=== PATIENT | female | born 1970 | race Caucasian/White ===

== ENCOUNTER 2018-08-02 07:46 | Day surgery (SDC) | payer OTHER, SELFPAY ==
[2018-08-02 08:02] VITALS: BP 108/71; PULSE 52; RESP 16; TEMP 36.2; O2SAT 97
[2018-08-02] MEDS: Lactated Ringers 1,000 ML 30 ML IV (08:07)
--- NOTE | 2018-08-02 09:47 | COLE_ITS ---
Date of service: 08/02/18 Time of Service: 09:50 Colonoscopy Report Date of procedure: 08/02/18 Pre-op diagnosis general: Family history of colorectal cancer Procedure: Colonoscopy to the cecum Surgeon: Jaden Younger Anesthesia proc note operative: MAC (Mariya Anand, XIOMARA ASA 2 Mallampati II) Estimated blood loss (mL): 0 Pathology: none sent Complications: None Disposition: same day Indications: 47 y/o female referred for colorectal cancer screening by colonoscopy. She has a family history of colorectal cancer. She has been asympotmatic. Recommended colonoscopy. Reviewed the colonoscopy procedure with her, and discussed the risks of the procedure. All her questions were answered to her satisfaction. Consent has been obtained to proceed. Prep: Miralax/Dulcolax (Prep quality excellent) Findings: Normal colon to the cecum. Procedure Description: The patient was seen in the day surgery waiting area. Her identification was confirmed, and procedure check. She was then brought to the procedure room. Monitoring for telemetry, blood pressure, oxygen saturation , and end tidal CO2 monitoring were applied. An appropriate time out was performed to confirm, identification, allergies, medication, procedure, was performed. Sedation was titrated for affect by the RELIGION TEACHER; Once adequate sedation was achieved, I performed a inspection of the external perineum, and a digitial rectal examination. No significant external abnormalities were noted. On digital rectal examination, there was no blood, no masses, good rectal tone. I advanced the colonoscope from the anus to the cecum under direct visualization. The cecum was identified by the ileal-cecal valve, and the appendiceal orifice. The scope was then withdrawn in circumferential manner from the cecum to the rectum. No abnormalites were noted in the colon. The scope was then withdrawn into the rectum, and retroflexed. No abnormalities were noted of the rectum or anorectal junction. The scope was then withdrawn, terminating the procedure. There were no complications during the procedure, and the patient tolerated the procedure well. She was returned to the day surgery recovery area in good condition. Plan: Will continue with routine screening for colorectal cancer according to current consensus guidelines, which is currently 5 years.
--- NOTE | 2018-08-02 09:47 | W.PM.DSUDISC ---
Discharge Plan Disposition Patient Disposition: HOME Condition: Good Discharge Details Reason For Visit: FAM HX OF COLON CA Attending Provider: Jaden Younger Primary Care Provider: Desirae Mckeon Home Meds and New Rx's Prescriptions: Continue triamcinolone acetonide 80 GM ointment 80 gm Topical BID PRNQty: 3 RF: 12 nystatin 60 GM powder Topical BID Qty: 60 RF: 12 Dorian Melts 500 2 tab.chew PO BID RF: 0 Vit B-12 Lozenge 1,000 mcg Sublingual 2x/week RF: 0 trazodone 100 MG tablet 100 mg PO DAILY Qty: 90 RF: 12 cholecalciferol (vitamin D3) 2,000 UNIT tablet 2,000 unit PO DAILY RF: 0 Multivitamin/Iron/Folic Acid [Centrum Adults Tablet] 1 EACH tablet 1 ea PO DAILY RF: 0 duloxetine 60 MG capsule,delayed release(DR/EC) 60 mg PO DAILY Qty: 90 RF: 11 wheat dextrin [Benefiber Clear SF (dextrin)] 1 EACH powder in packet 1 ea PO DAILY RF: 0 sennosides [senna] 8.6 MG tablet 2 tab-cap PO DAILY RF: 0 polyethylene glycol 3350 [Miralax] 17 GM powder in packet 17 g PO DAILY Qty: 255 RF: 0 Discontinued polyethylene glycol 3350 [Miralax] 17 GM powder in packet 17 g PO DAILY Qty: 255 RF: 0 bisacodyl [Dulcolax (bisacodyl)] 5 MG tablet,delayed release (DR/EC) 5 mg PO ONCE Qty: 4 RF: 0 Discharge Instructions Instructions: Colonoscopy (DC) Activity:: Activity as Tolerated Diet:: As Tolerated Discharge Orders Discharge Orders: Discharge Order (Routine); Ordered 08/02/18 Ordered By: Jaden Younger DS: Diagnosis Discharge Diagnosis (1) Family history of colon cancer: Status: Acute
[2018-08-02 11:12] VITALS: BP 93/63; PULSE 50; RESP 16; TEMP 36.5; O2SAT 100
== END 2018-08-02 11:24 | disposition home or self-care (01) ==
PROVIDERS: PCP Family Medicine; Visit Provider Surgery
PROC: 0DJD8ZZ Inspection of Lower Intestinal Tract, Via Natural or Artificial Opening Endoscopic (ICD-10-PCS; CPT 45378; principal; 2018-08-02 08:55)
DX: Z12.11 Encounter for screening for malignant neoplasm of colon (principal); Z80.0 Family history of malignant neoplasm of digestive organs
CPT/HCPCS: 45378

== ENCOUNTER 2019-07-09 06:35 | Outpatient (CLI) | payer OTHER, SELFPAY ==
[2019-07-09 11:23] LABS: HCT 39.4 % (36.0-46.0); HGB 13.2 g/dL (12.0-15.5); Mean Corp. HGB Concentration 33.5 g/dL (32.0-36.0); Mean Corpuscular Hemoglobin 30.1 pg (27.0-33.0); Mean Platelet Volume 10.5 fL (8.0-11.0); Platelet Count 246 x1000/uL (130-400); RBC 4.38 m/cumm (4.00-5.20); White Blood Cell Count 3.51 k/cumm (4.4-10.8)
[2019-07-09 12:15] LABS: Iron 152 ug/dL (50-175)
[2019-07-09 12:40] LABS: Vitamin D 25 Total 44.8 ng/ml (30-100)
[2019-07-09 12:41] LABS: ALT 24 U/L (14-59); AST 15 U/L (15-37); Albumin 3.6 g/dL (3.4-5.0); Alkaline Phosphatase 88 U/L (46-116); Anion Gap 8.6 mmol/L (3-11); BUN 18 mg/dL (7-18); Bilirubin, Total 0.6 mg/dL (0.2-1.0); CO2 29.4 mmol/L (21.0-32.0); CREATININE 0.82 mg/dL (0.55-1.02); Calcium 8.9 mg/dL (8.5-10.1); Calculated LDL 70 mg/dL; Chloride 105 mmol/L (98-107); Cholesterol 152 mg/dL (50-200); Ferritin 32 ng/mL (8-388); Glucose 84 mg/dL (70-100); HDL Cholesterol 75 mg/dL (40-60); Potassium 4.4 mmol/L (3.5-5.1); Sodium 143 mmol/L (136-145); TSH (W/Ref FT4) 1.91 uIU/mL (0.36-3.74); Total Protein 6.3 g/dL (6.4-8.2); Triglyceride 39 mg/dL (30-150); Vitamin B12 1026 pg/mL (193-986)
[2019-07-09 12:44] LABS: Folate > 20.0 ng/mL (8.6-20.0)
== END 2019-07-09 06:55 ==
PROVIDERS: PCP Family Medicine; Visit Provider Family Medicine
DX: Z00.00 Encounter for general adult medical examination without abnormal findings (principal); Z98.84 Bariatric surgery status
CPT/HCPCS: 36415; 80053; 80061; 82306; 83721; 85027; 82607; 82728; 82746; 83540; 84443

== ENCOUNTER 2019-07-30 00:56 | Outpatient (CLI) | payer OTHER, SELFPAY ==
--- NOTE | 2019-07-30 12:30 | DI.MAMMO_ITS ---
EXAM: MG MAMMO SCREENING CLINICAL HISTORY: screening Z12.39. TECHNIQUE: Bilateral full field digital CC and MLO mammographic images were obtained with 3D tomosyn thesis and utilizing computer aided detection (CAD). COMPARISON: With previous examinations including May,. FINDINGS: The breasts are of moderate density with fairly symmetrical distribution of fibroglandular tissue. N o dominant mass or clumped microcalcification is identified in either breast. Current examination is compared with the previous examinations including May 2018 and there is increased prominence of foc al asymmetric density of the retroareolar/supra-areolar portion of the right breast in comparison wit h the previous examination. Additional mammographic views of this area are requested to include MLO spot compression view of the right breast. IMPRESSION: Additional mammographic views of the right breast requested as described above. Breast ultrasound may be indicated as well depending on the results of the additional mammographic views. Category [address]. [place] [address] density, category B. BI-RADS Cat 0 - Assessment Incomplete: Need additional imaging evaluation. Breast Density - Category B - Scattered areas of fibroglandular density.
== END 2019-07-30 01:16 ==
PROVIDERS: PCP Family Medicine; Visit Provider Family Medicine
DX: Z12.31 Encounter for screening mammogram for malignant neoplasm of breast (principal); R92.8 Other abnormal and inconclusive findings on diagnostic imaging of breast
CPT/HCPCS: 77063; 77067

== ENCOUNTER 2019-08-06 01:04 | Outpatient (CLI) | payer OTHER, SELFPAY ==
--- NOTE | 2019-08-06 15:02 | DI.MAMMO_ITS ---
EXAM: MAMMO SCREEN CALL BACK UNI CLINICAL HISTORY: F/U MAMMO, INCREASED PROMINENCE FOCAL ASYMMETRIC DENSITY. TECHNIQUE: Additional images are interpreted according to the usual protocol including tomosynthesis and 2D imaging. FINDINGS: Mediolateral compression spot films of the right breast were obtained today. Non-specific densities a re demonstrated. No definite mass is seen. And ultrasound examination was carried out. Please see t he separate report. IMPRESSION: BI-RADS Cat 1 - Negative. Breast Density - Category B - Scattered areas of fibroglandular density.
--- NOTE | 2019-08-06 15:30 | DI.US_ITS ---
EXAM: US BREAST RT LIMITED CLINICAL HISTORY: F/U MAMMO, INCREASED PROMINENCE FOCAL ASYMMETRIC DENSITY. TECHNIQUE: Ultrasound performed using standard protocol. COMPARISON: PELVIS TRANSVAG from 06/09/2011 FINDINGS: A right breast ultrasound reveals no evidence of a cyst or mass.
== END 2019-08-06 01:24 ==
PROVIDERS: PCP Family Medicine; Visit Provider Family Medicine
DX: Z12.31 Encounter for screening mammogram for malignant neoplasm of breast (principal); R92.8 Other abnormal and inconclusive findings on diagnostic imaging of breast; N64.59 Other signs and symptoms in breast
CPT/HCPCS: 76642; 77063; 77067

== ENCOUNTER 2020-07-15 12:26 | Outpatient (REF) | payer OTHER, SELFPAY ==
--- NOTE | 2020-07-15 11:15 | PAPFT_PTH ---
PATIENT: Ale Velarde LOC: [facility] U#:[id number] AGE/SX: 49/F ROOM: RE07/15/[address]: Desirae Mckeon MD, DC : 1970 BED: DIS: 07/15/2020 SPEC #: [id number] RECD: 07/16/20 10:10 STATUS: ELIUD REQ #: [id number] ELIN: 07/15/20 11:[address]: Desirae Mckeon DEPT: [facility] Cytology RECD BY: Orly Lane Tissues: 1 - CX/ENDOCX FOR PAP SMEARS Procedures: PAP THIN PREP/UVM Screening HPV DNA PROBE Comments: [id number]
== END 2020-07-15 12:46 ==
LOC: LBN 12:26
PROVIDERS: PCP Family Medicine; Visit Provider Family Medicine
DX: Z12.4 Encounter for screening for malignant neoplasm of cervix (principal); Z11.51 Encounter for screening for human papillomavirus (HPV)
CPT/HCPCS: 88142; 87624

== ENCOUNTER 2020-07-28 01:56 | Outpatient (CLI) | payer OTHER, SELFPAY ==
--- NOTE | 2020-07-28 07:42 | DI.MAMMO_ITS ---
EXAM: MAMMO SCREENING CLINICAL HISTORY: screening,Z12.39 TECHNIQUE: Mammograms were interpreted according to the usual protocol including computer analysis w [employer] CAD system, tomosynthesis and C-view imaging. COMPARISON: FINDINGS: The breasts are of moderate density with fairly symmetrical distribution of fibroglandular tissue. N o dominant mass or clumped microcalcification is identified in either breast. There is an irregular focal radiodensity projected posteriorly in the right breast on MLO view in the central portion of th e breast. This was not present on prior studies including July 2019. No other significant change seen. Additional mammographic views of the right breast are requested to include an MLO spot compression vi ew of the right breast to evaluate the irregular focal radiodensity. Breast ultrasound may be indica cecil as well depending on the results of the additional mammographic views. IMPRESSION: Additional mammographic views of the right breast and possible right breast ultrasound recommended as described above. BI-RADS Category 0 - Assessment Incomplete: Need additional imaging evaluation Breast Density - Category B - Scattered areas of fibroglandular density
== END 2020-07-28 02:16 ==
PROVIDERS: PCP Family Medicine; Visit Provider Family Medicine
DX: Z12.31 Encounter for screening mammogram for malignant neoplasm of breast (principal); R92.8 Other abnormal and inconclusive findings on diagnostic imaging of breast
CPT/HCPCS: 77063; 77067

== ENCOUNTER 2020-08-03 00:34 | Outpatient (CLI) | payer OTHER, SELFPAY ==
--- NOTE | 2020-08-03 | DI.US_ITS ---
EXAM: MG MAMMO SCREEN CALL BACK UNI and U/S breast RT limited CLINICAL HISTORY: F/U MAMMO,IRREGULAR FOCAL DENSITY,MLO VIEW RT BREAST. TECHNIQUE: Craniocaudal and mediolateral oblique Full Field Digital Mammography views of the right b reast with Computer Aided Diagnosis followed by Tomosynthesis and right breast ultrasound. COMPARISON: Priors available for comparison. FINDINGS: Mammography/Tomosynthesis: Masses/Architectural Distortion: The area of concern does not persist on the additional views. Microcalcifictions: No suspicious pleomorphic-type are seen. Skin Thickening/Nipple Retraction: None. Right breast US: Echotexture: Normal appearance of the glandular tissue. Shadowing: No suspicious foci. Cyst: None. Solid lesions: None seen. Ductal dilation: None. IMPRESSION: 1. No evidence of malignancy is noted. 2. Six-month follow-up right mammogram is requested for re-evaluation. 3. The findings were discussed with the patient on the date of the examination. BI-RADS Category 3 - 6 month - Probably Benign Finding: Recommend follow-up mammography in 6 months Breast Density - Category B - Scattered areas of fibroglandular density A negative radiographic report should not delay biopsy if a dominant or clinically suspicious mass is present. Up to ten percent of cancers are not identified on mammography. A negative report may reinforce clinical impression. Adenosis and dense breasts may obscure an underlying neoplasm. False positive reports average 6 to 10%. Patient will receive a letter notifying them of these results.
== END 2020-08-03 00:54 ==
PROVIDERS: PCP Family Medicine; Visit Provider Family Medicine
DX: R92.8 Other abnormal and inconclusive findings on diagnostic imaging of breast (principal)
CPT/HCPCS: 76642; 77063; 77067

== ENCOUNTER 2021-02-08 01:54 | Outpatient (CLI) | payer OTHER, SELFPAY ==
--- NOTE | 2021-02-08 06:30 | DI.MAMMO_ITS ---
EXAM: MG MAMMO DIAGNOSTIC UNI CLINICAL HISTORY: 3-6 MO F/U,R92.8,Z09,F/U ABNL RT MAMMO. COMPARISON: MG Screening Bilat Mammo from 02/15/2017 MG MG MAMMO SCREENING from 07/30/2019 MG MG MAMMO SCREEN CALL BACK UNI from 08/06/2019 US BREAST RT LIMITED from 08/03/2020 MG MG MAMMO SCREEN CALL BACK UNI from 08/03/2020 US US BREAST RT LIMITED from 08/03/2020 MG MG MAMMO SCREEN CALL BACK UNI from 08/03/2020 [id number] TECHNIQUE: Craniocaudal and mediolateral oblique Full Field Digital Mammography views of the right breast with Computer Aided Diagnosis FINDINGS: Mammography/Tomosynthesis: Masses/Architectural Distortion: None seen. Microcalcifications: No suspicious pleomorphic-type are seen. Skin Thickening/Nipple Retraction: None. IMPRESSION: 1. No evidence of malignancy is noted. 2. Recommend resume bilateral screening in 6 months.. BI-RADS Category 1 - Negative Breast Density - Category B - Scattered areas of fibroglandular density Breast density category C or D implies that the patient has dense breast tissue. Dense breast tissue is very common and is not abnormal but dense breast tissue can make it harder to find cancer on a ma mmogram. Also, dense breast tissue may increase their breast cancer risk. This information about the result of the mammogram report was provided to the patient to raise their awareness. Use this report when you speak with the patient about their risks for breast cancer, which includes their family hist ory. At that time, you may recommend for more screening tests (Ultrasound or MRI) as they might be us eful based on their risk. A negative radiographic report should not delay biopsy if a dominant or clinically suspicious mass is present. Up to ten percent of cancers are not identified on mammography. A negative report may reinforce clinical impression. Adenosis and dense breasts may obscure an underlying neoplasm. False positive reports average 6 to 10%. Patient will receive a letter notifying them of these results.
== END 2021-02-08 02:14 ==
PROVIDERS: PCP Family Medicine; Visit Provider Family Medicine
DX: Z12.31 Encounter for screening mammogram for malignant neoplasm of breast (principal); R92.8 Other abnormal and inconclusive findings on diagnostic imaging of breast; N64.89 Other specified disorders of breast
CPT/HCPCS: 77061; 77065; G0279

== ENCOUNTER 2021-05-05 12:15 | Emergency (ER) | payer OTHER, SELFPAY ==
[2021-05-05 12:20] VITALS: BP 132/78; PULSE 83; RESP 22; TEMP 36.5; O2SAT 99
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
[2021-05-05] MEDS: ACETAMINOPHEN 1,000 MG/100 ML BTL 400 MG IVPB (12:58)
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
[2021-05-05] MEDS: Ketorolac 30 MG/ML VIAL IVP (14:11)
[2021-05-05 15:13] VITALS: BP 132/78; PULSE 83; RESP 22; TEMP 36.5; O2SAT 99
== END 2021-05-05 15:20 | disposition home or self-care (01) ==
PROVIDERS: Emergency Provider Physician Assistant; PCP Family Medicine
DX: S00.03XA Contusion of scalp, initial encounter (principal); S50.311A Abrasion of right elbow, initial encounter; S40.011A Contusion of right shoulder, initial encounter; S30.0XXA Contusion of lower back and pelvis, initial encounter; V03.90XA Pedestrian on foot injured in collision with car, pick-up truck or van, unspecified whether traffic or nontraffic accident, initial encounter
CPT/HCPCS: 90471; 96365; 96375; 99285; 70450; 71046; 72125; 72131; 73030; 99284; J0131; J1885

== ENCOUNTER 2021-05-09 03:18 | Outpatient (CLI) | payer OTHER, SELFPAY ==
[2021-05-09 12:50] LABS: Hemoglobin A1C 5.3 % (<5.7)
[2021-05-09 12:52] LABS: ALT 25 U/L (14-59); AST 18 U/L (15-37); Alkaline Phosphatase 82 U/L (46-116); Anion Gap 9.5 mmol/L (3-11); BUN 17 mg/dL (7-18); Bilirubin, Total 0.6 mg/dL (0.2-1.0); CO2 29.5 mmol/L (21.0-32.0); CREATININE 0.8 mg/dL (0.55-1.02); Calculated LDL 90 mg/dL (<100); Chloride 105 mmol/L (98-107); Cholesterol 179 mg/dL (<200); Glucose 91 mg/dL (74-106); HDL Cholesterol 77 mg/dL (40-60); Potassium 3.7 mmol/L (3.5-5.1); Sodium 144 mmol/L (136-145); TSH (W/Ref FT4) 1.33 uIU/mL (0.36-3.74); Total Protein 6.8 g/dL (6.4-8.2); Triglyceride 64 mg/dL (<150)
[2021-05-10 10:14] LABS: Hepatitis C Ab w Rflx HCV PCR Negative (Negative)
== END 2021-05-09 03:19 | disposition home or self-care (01) ==
LOC: LOS 03:19
PROVIDERS: PCP Family Medicine; Visit Provider Family Medicine
DX: Z00.00 Encounter for general adult medical examination without abnormal findings (principal); F43.21 Adjustment disorder with depressed mood; E11.9 Type 2 diabetes mellitus without complications; Z13.220 Encounter for screening for lipoid disorders; Z98.84 Bariatric surgery status; Z11.59 Encounter for screening for other viral diseases
CPT/HCPCS: 36415; 80053; 80061; 82306; 86803; 83036; 84443

== ENCOUNTER 2021-07-07 10:14 | Outpatient (CLI) | payer OTHER, SELFPAY ==
--- NOTE | 2021-07-07 10:00 | RT.EKG_ITS ---
APPROVED REPORT Exam: Resting ECG Reason for Exam: dizziness. chest pain. Patient Location: O HR:59 bpm ECG Measurements Heart Rate 59 AXIS MA 171 P 72 QRSd 86 QRS 45 QT 418 T 52 QTc 416 Conclusion Sinus bradycardia...rate< 60 Low voltage, extremity leads...all extremity leads <0.5mV
== END 2021-07-07 10:15 | disposition home or self-care (01) ==
LOC: DI.CM 10:15
PROVIDERS: PCP Family Medicine; Visit Provider Nurse Practitioner Family
DX: R42 Dizziness and giddiness (principal); R07.9 Chest pain, unspecified
CPT/HCPCS: 93010

== ENCOUNTER 2021-07-07 17:31 | Outpatient (REF) | payer OTHER, SELFPAY ==
[2021-07-07 13:30] LABS: Abs Immature Grans 0.02 10^3/uL (0.0-0.06); Absolute Basophil Count 0.02 10^3/uL (0.0-0.2); Absolute Eosinophil Count 0.08 10^3/uL (0.0-0.7); Absolute Lymphocyte Count 1.35 10^3/uL (1.2-3.4); Absolute Monocyte Count 0.32 10^3/uL (0.1-0.8); Absolute Neutrophil Count 3.57 10^3/uL (1.2-6.7); Basophils % 0.4; Eosinophils % 1.5; HCT 35.7 % (36.0-46.0); HGB 11.8 g/dL (11.2-15.7); Immature Grans % 0.4; Lymphocytes % 25.2; MCH 29.6 pg (27.0-33.0); MCHC 33.1 % (32.0-36.0); MCV 89.7 fL (80-95); MPV 9.7 fL (8.0-11.0); Neutrophils % 66.5; Nucleated RBC 0 %; Platelet Count 243 10^3/uL (130-400); RBC 3.98 10^6/uL (3.93-5.22); RDW 12.1 % (11.7-14.6); RDW-SD 40.5 fL; WBC 5.36 10^3/uL (4.4-10.8)
[2021-07-07 13:34] LABS: Anion Gap 6.7 mmol/L (3-11); BUN 16 mg/dL (7-18); CO2 27.3 mmol/L (21.0-32.0); CREATININE 0.8 mg/dL (0.55-1.02); Calcium 7.8 mg/dL (8.5-10.1); Chloride 109 mmol/L (98-107); Glucose 83 mg/dL (74-106); Potassium 3.8 mmol/L (3.5-5.1); Sodium 143 mmol/L (136-145)
== END 2021-07-07 17:32 | disposition home or self-care (01) ==
LOC: LBN 17:31
PROVIDERS: PCP Family Medicine; Visit Provider Nurse Practitioner Family
DX: R42 Dizziness and giddiness (principal)
CPT/HCPCS: 80048; 85025

== ENCOUNTER 2021-10-24 13:23 | Outpatient (REF) | payer OTHER, SELFPAY ==
[2021-10-25 02:23] LABS: COVID-19 RT-PCR UVMMC Result Negative (Negative)
== END 2021-10-24 13:24 | disposition home or self-care (01) ==
LOC: LBN 13:23
PROVIDERS: PCP Family Medicine; Visit Provider Family Medicine
DX: Z20.822 Contact with and (suspected) exposure to COVID-19 (principal)
CPT/HCPCS: U0003

== ENCOUNTER 2022-02-14 01:36 | Outpatient (CLI) | payer OTHER, SELFPAY ==
--- NOTE | 2022-02-14 07:30 | DI.MAMMO_ITS ---
Exam(s) MAMMO SCREENING EXAM: MAMMO SCREENING CLINICAL HISTORY: screening,z12.39 TECHNIQUE: Bilateral full field digital CC and MLO mammographic images were obtained with 3D tomosyn thesis and utilizing computer aided detection (CAD). COMPARISON: Available for comparison. FINDINGS: Masses/Architectural Distortion: None seen. Microcalcifications: No suspicious pleomorphic-type are seen. Skin Thickening/Nipple Retraction: None. IMPRESSION: 1. No significant interval change with no specific features of malignancy noted. 2. Unless there is more urgent need, screening mammography is recommended, as per [employer] guidelines. BI-RADS Category 1 - Negative Breast Density - Category B - Scattered areas of fibroglandular density Breast density category C or D implies that the patient has dense breast tissue. Dense breast tissue is very common and is not abnormal but dense breast tissue can make it harder to find cancer on a ma mmogram. Also, dense breast tissue may increase their breast cancer risk. This information about the result of the mammogram report was provided to the patient to raise their awareness. Use this report when you speak with the patient about their risks for breast cancer, which includes their family hist ory. At that time, you may recommend for more screening tests (Ultrasound or MRI) as they might be us eful based on their risk. A negative radiographic report should not delay biopsy if a dominant or clinically suspicious mass is present. Up to ten percent of cancers are not identified on mammography. A negative report may reinforce clinical impression. Adenosis and dense breasts may obscure an underlying neoplasm. False positive reports average 6 to 10%. Patient will receive a letter notifying them of these results.
== END 2022-02-14 01:56 ==
PROVIDERS: PCP Family Medicine; Visit Provider Family Medicine
DX: Z12.31 Encounter for screening mammogram for malignant neoplasm of breast (principal)
CPT/HCPCS: 77063; 77067

== ENCOUNTER → 2022-05-17 01:21 | Outpatient (CLI) | payer OTHER, SELFPAY ==
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
== END ==
PROVIDERS: PCP Family Medicine; Visit Provider Family Medicine
DX: M18.0 Bilateral primary osteoarthritis of first carpometacarpal joints (principal)
CPT/HCPCS: 73120

== ENCOUNTER 2022-05-17 02:55 | Outpatient (CLI) | payer OTHER, SELFPAY ==
[2022-05-17 13:03] LABS: ESR < 1 mm/hr (0-30)
[2022-05-17 13:20] LABS: Uric Acid 3.4 mg/dL (2.6-6.0)
[2022-05-17 21:54] LABS: Rheumatoid Factor <8.6 IU/mL (<12.0)
[2022-05-18 15:17] LABS: ANA Interpretation Negative (Negative)
== END 2022-05-17 02:56 | disposition home or self-care (01) ==
PROVIDERS: PCP Family Medicine; Visit Provider Family Medicine
DX: M79.641 Pain in right hand (principal); M79.642 Pain in left hand; M25.59 Pain in other specified joint
CPT/HCPCS: 36415; 85652; 84550; 86038; 86431

== ENCOUNTER 2022-07-25 04:00 | Outpatient (CLI) | payer OTHER, SELFPAY ==
[2022-07-25 12:41] LABS: ESR < 1 mm/hr (0-30)
== END 2022-07-25 04:01 | disposition home or self-care (01) ==
LOC: LOS 04:00
PROVIDERS: PCP Family Medicine; Visit Provider Family Medicine
DX: M25.59 Pain in other specified joint (principal)
CPT/HCPCS: 36415; 85652

== ENCOUNTER 2022-11-22 03:13 | Outpatient (CLI) | payer OTHER, SELFPAY ==
[2022-11-22 12:29] LABS: HCT 40.3 % (36.0-46.0); HGB 13.2 g/dL (11.2-15.7); MCH 28.8 pg (27.0-33.0); MCHC 32.8 % (32.0-36.0); MCV 88 fL (80-95); MPV 9.6 fL (8.0-11.0); Platelet Count 281 10^3/uL (130-400); RBC 4.58 10^6/uL (3.93-5.22); RDW 12.7 % (11.7-14.6); RDW-SD 41.1 fL; WBC 4.98 10^3/uL (4.4-10.8)
[2022-11-22 13:30] LABS: ALT 23 U/L (14-59); AST 23 U/L (15-37); Albumin 4.1 g/dL (3.4-5.0); Alkaline Phosphatase 99 U/L (46-116); Anion Gap 10.2 mmol/L (3-11); BUN 20 mg/dL (7-18); Bilirubin, Total 0.3 mg/dL (0.2-1.0); CO2 26.8 mmol/L (21.0-32.0); CREATININE 0.8 mg/dL (0.55-1.02); Chloride 104 mmol/L (98-107); Glucose 90 mg/dL (74-106); Potassium 3.7 mmol/L (3.5-5.1); Sodium 141 mmol/L (136-145); TSH (W/Ref FT4) 1.07 uIU/mL (0.36-3.74); Total Protein 7.3 g/dL (6.4-8.2)
[2022-11-22 13:39] LABS: Vitamin D 25 Total 51.3 ng/mL (30-100)
== END 2022-11-22 03:14 | disposition home or self-care (01) ==
LOC: LOS 03:15
PROVIDERS: PCP Family Medicine; Visit Provider Family Medicine
DX: Z00.00 Encounter for general adult medical examination without abnormal findings (principal)
CPT/HCPCS: 36415; 80053; 82306; 85027; 84443

== ENCOUNTER 2023-02-12 10:57 | Outpatient (CLI) | payer OTHER, SELFPAY ==
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
--- NOTE | 2023-02-12 10:45 | DI.RAD_ITS ---
Exam(s) XR WRIST RT COMPLETE EXAM: XR WRIST RT COMPLETE CLINICAL HISTORY: B/L thumb/wrist pain. TECHNIQUE: 2D digital imaging was performed. COMPARISON: No exams were available for comparison FINDINGS: 3 views No evidence of acute fracture. There are 2 osteophytic densities noted in the medial aspect of the w rist distal to the ulnar styloid which appear corticated and not having the appearance of acute fract ure fragments. There is no significant ulnar variance. Distal radius appears unremarkable. Scaphoi d and scapholunate distance normal. There is significant degenerative narrowing of the 1st carpometacarpal joint. This is similar to the opposite side. IMPRESSION: Moderate-advanced degenerative changes in the 1st carpometacarpal joint. Other findings as above. No fractures. DATA REPOSITORY: RADIATION DOSE DELIVERED:
== END 2023-02-12 10:58 | disposition home or self-care (01) ==
LOC: DIORS 10:58
PROVIDERS: PCP Family Medicine; Referring Provider Family Medicine; Visit Provider Physician Assistant
DX: M79.644 Pain in right finger(s) (principal); M79.645 Pain in left finger(s); M18.11 Unilateral primary osteoarthritis of first carpometacarpal joint, right hand; M18.12 Unilateral primary osteoarthritis of first carpometacarpal joint, left hand; M25.531 Pain in right wrist; M25.532 Pain in left wrist
CPT/HCPCS: 73110

== ENCOUNTER 2023-02-16 00:34 | Outpatient (CLI) | payer OTHER, SELFPAY ==
--- NOTE | 2023-02-16 07:45 | DI.MAMMO_ITS ---
Exam(s) MAMMO SCREENING EXAM: MAMMO SCREENING CLINICAL HISTORY: screening,Z12.39 TECHNIQUE: Bilateral full field digital CC and MLO mammographic images were obtained with 3D tomosyn thesis and utilizing computer aided detection (CAD). COMPARISON: Available for comparison. FINDINGS: Masses/Architectural Distortion: None seen. Microcalcifications: No suspicious pleomorphic-type are seen. Skin Thickening/Nipple Retraction: None. IMPRESSION: 1. No significant interval change with no specific features of malignancy noted. 2. Unless there is more urgent need, screening mammography is recommended, as per [place] [employer] guidelines. BI-RADS Category 1 - Negative Breast Density - Category B - Scattered areas of fibroglandular density Breast density category C or D implies that the patient has dense breast tissue. Dense breast tissue is very common and is not abnormal but dense breast tissue can make it harder to find cancer on a ma mmogram. Also, dense breast tissue may increase their breast cancer risk. This information about the result of the mammogram report was provided to the patient to raise their awareness. Use this report when you speak with the patient about their risks for breast cancer, which includes their family hist ory. At that time, you may recommend for more screening tests (Ultrasound or MRI) as they might be us eful based on their risk. A negative radiographic report should not delay biopsy if a dominant or clinically suspicious mass is present. Up to ten percent of cancers are not identified on mammography. A negative report may reinforce clinical impression. Adenosis and dense breasts may obscure an underlying neoplasm. False positive reports average 6 to 10%. Patient will receive a letter notifying them of these results.
== END 2023-02-16 00:54 ==
LOC: DI 00:35
PROVIDERS: PCP Family Medicine; Visit Provider Family Medicine
DX: Z12.31 Encounter for screening mammogram for malignant neoplasm of breast (principal)
CPT/HCPCS: 77063; 77067

== ENCOUNTER 2023-05-10 13:09 | Observation (INO) | payer OTHER, SELFPAY ==
[2023-05-10] VITALS (8 sets, daily range): BP systolic 93–110; BP diastolic 46–72; PULSE 56–82; RESP 18–24; TEMP 36.6–36.9; O2SAT 93–99; BMI 25.4
--- NOTE | 2023-05-10 13:15 | DI.CT_ITS ---
Exam(s) CT ABDOMEN PELVIS W EXAM: CT ABDOMEN PELVIS W CLINICAL HISTORY: RLQ pain, nausea vomiting. TECHNIQUE: Imaging Protocol: Axial computed tomography images with coronal and sagittal reformatted images were created and reviewed CONTRAST MATERIAL: Intravenous: Omnipaque 350 Contrast volume:100 ml Oral: / no COMPARISON: No exams were available for comparison FINDINGS: ABDOMEN: Lung Bases: Normal where visualized. Liver: Normal density. No measurable mass. Gallbladder and biliary tract: No radiodense calculus or dilation. Pancreas: Normal density, no abnormal calcifications or inflammatory process. Spleen: Normal. Kidneys: Normal size, contour and axis. No radiodense stones or obstructive uropathy. No suspicious m asses seen. Adrenal glands: No masses seen. Abdominal Aorta: Abdominal portion non-dilated. Soft tissues: Unremarkable. PELVIS: Bladder: Nearly empty. Not well evaluated. Bowel: Suture material at stomach and left upper quadrant jejunum.. No obstruction. No bowel wall thickening. Appendix shows marked dilatation. Arm or also a appendicoliths. There is surrounding in flammation, consistent with appendicitis. No abscess or perforation. Peritoneal cavity: No ascites, collection or mesenteric inflammatory response. Bones: Unremarkable for age. Reproductive organs: Within normal limits. Lymph nodes: Unremarkable. Impression: Findings consistent with acute appendicitis. No abscess or perforation. RADIATION DOSE DELIVERED: 771.08mGy.cm Total DLP DATA REPOSITORY: All CT scans at this facility are submitted to the National Radiology Data Registry (NRDR) Dose Index Registry (DIR) with the [place] [employer] (ACR). RADIATION OPTIMIZATION: All CT scans at this facility use at least one of these dose optimization te chniques: automated exposure control; mA and/or kV adjustment per patient size (includes targeted exa ms where dose is matched to clinical indication); or iterative reconstruction.
[2023-05-10 13:38] LABS: Abs Immature Grans 0.04 10^3/uL (0.0-0.06); Absolute Basophil Count 0.03 10^3/uL (0.0-0.2); Absolute Eosinophil Count 0.01 10^3/uL (0.0-0.7); Absolute Lymphocyte Count 0.85 10^3/uL (1.2-3.4); Absolute Monocyte Count 0.71 10^3/uL (0.1-0.8); Absolute Neutrophil Count 11.83 10^3/uL (1.2-6.7); Basophils % 0.2; Eosinophils % 0.1; HCT 37.7 % (36.0-46.0); HGB 12.7 g/dL (11.2-15.7); Immature Grans % 0.3; Lymphocytes % 6.3; MCH 29.2 pg (27.0-33.0); MCHC 33.7 % (32.0-36.0); MCV 87 fL (80-95); MPV 8.7 fL (8.0-11.0); Monocytes % 5.3; Neutrophils % 87.8; Platelet Count 248 10^3/uL (130-400); RBC 4.35 10^6/uL (3.93-5.22); RDW-SD 41.5 fL; WBC 13.47 10^3/uL (4.4-10.8)
[2023-05-10] MEDS: MORPHine 4 MG/ML SYR 2 MG IVP ×2 (13:43→18:04)
[2023-05-10] MEDS: Normal Saline 1,000 ML 1000 ML IV ×2 (13:44→18:05)
[2023-05-10] MEDS: Ondansetron 4 MG/2 ML VIAL IVP ×2 (13:44→17:18)
[2023-05-10 13:52] LABS: Bilirubin Small (Negative); Blood Negative (Negative); Clarity Clear (Clear); Glucose Negative (Negative); Ketones 80 mg/dL (Negative); Leukocyte Esterase Negative (Negative); Nitrite Negative (Negative); Urobilinogen 0.2 mg/dL (Up to 0.2); pH 8.5 (5-8)
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
[2023-05-10 13:58] LABS: ALT 22 U/L (14-59); AST 16 U/L (15-37); Alkaline Phosphatase 107 U/L (46-116); Anion Gap 9.1 mmol/L (3-11); BUN 17 mg/dL (7-18); Bilirubin, Total 0.6 mg/dL (0.2-1.0); CO2 27.9 mmol/L (21.0-32.0); CREATININE 0.8 mg/dL (0.55-1.02); Calcium 8.9 mg/dL (8.5-10.1); Chloride 101 mmol/L (98-107); Glucose 105 mg/dL (74-106); Lipase 23 U/L (16-77); Potassium 3.6 mmol/L (3.5-5.1); Sodium 138 mmol/L (136-145); Total Protein 7.3 g/dL (6.4-8.2)
[2023-05-10] MEDS: Omnipaque 350 MG/ML 100 ML BTL IJ (14:25)
[2023-05-10] MEDS: Normal Saline - Diluent 50 ML VIAL IJ (14:26)
[2023-05-10] MEDS: Normal Saline Flush 10 ML SYR IVP (14:27)
--- NOTE | 2023-05-10 18:50 | DI.VRAD_ITS ---
Addendum created by Arielle Alcala MD on 05/10/2023 7:25:17 PM EDT: THIS REPORT CONTAINS FINDINGS THAT MAY BE CRITICAL TO PATIENT CARE. Reji Pascual confirmed via telephone conference at 05/10/2023 7:21 PM EDT that the findings of this report are acknowledged and understood. Initial report created on 05/10/2023 6:49:44 PM EDT: PROCEDURE INFORMATION: Exam: CT Abdomen And Pelvis With Contrast Exam date and time: 05/10/2023 2:22 PM Age: 52 years old Clinical indication: Abdominal pain; Rlq TECHNIQUE: Imaging protocol: Computed tomography of the abdomen and pelvis with contrast. Contrast material: OMNIPAQUE 350; Contrast volume: 100 ml; Contrast route: IV; COMPARISON: CT LUMBAR SPINE WO 05/05/2021 1:42 PM FINDINGS: Lungs: Dependent atelectasis is seen at the lung bases. Liver: Unremarkable liver. No mass identified. Gallbladder and bile ducts: The gallbladder is unremarkable. No calcified stones. No ductal dilation. Pancreas: Normal. No ductal dilation. Spleen: The spleen is unremarkable. No splenomegaly. Adrenal glands: The adrenal glands are unremarkable. No defined mass. Kidneys and ureters: There are small bilateral renal hypodensities, which are too small to characterize but may represent cysts. No hydronephrosis. Stomach and bowel: No bowel obstruction. There is evidence of prior gastric bypass procedure. Appendix: The appendix is dilated measuring up to 1.3 cm in diameter. Small appendicoliths are noted within the appendix. Periappendiceal fat stranding is noted, consistent with inflammation. Intraperitoneal space: No free air. No significant fluid collection. Vasculature: No abdominal aortic aneurysm. Lymph nodes: No enlarged lymph nodes. Urinary bladder: Unremarkable urinary bladder. Reproductive: Unremarkable as visualized. Bones/joints: No acute fracture. Soft tissues: Unremarkable. IMPRESSION: Findings suggestive of acute appendicitis as described. No evidence of perforation or abscess formation. Dictated and Authenticated by: Arielle Alcala MD. Ordering:GABRIEL Mendoza MD
[2023-05-10] MEDS: PIPERACILLIN/TAZO 4.5 GM in Normal Saline 100 ML IVPB (19:05)
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
[2023-05-10] MEDS: Lactated Ringers 1,000 ML 100 ML IV (20:21)
[2023-05-10] MEDS: ceFAZolin 2 GM/50 ML BAG 100 GM (20:40)
[2023-05-10] MEDS: Bupivacaine 0.25% Pres-Free 30 ML VIAL (20:43)
--- NOTE | 2023-05-10 21:17 | APP_PTH ---
PATIENT: Ale Velarde LOC: U#:[id number] AGE/SX: 52/F ROOM: [facility] RE05/10/[address]: Emeterio Khan MD : 1970 BED: A DIS: 05/11/2023 SPEC #: [id number] RECD: 05/11/23 11:22 STATUS: ELIUD REQ #: [id number] ELIN: 05/10/23 21:[address]: Emeterio Khan DEPT: Surgical Specimen RECD BY: Marielena Fine ENTERED: 05/11/23 11:22 SP TYPE: Appendix OTHR DR: Desirae Mckeon MD, DC Tissues: 1 - APPENDIX NOT INCIDENTAL Procedures: GROSS AND MICRO LEVEL 3 Comments: [id number]
--- NOTE | 2023-05-10 21:19 | ROE_ITS ---
Date of service: 05/10/23 Time of Service: 21:19 Operative Note Operative Note DATE OF PROCEDURE: 05/10/23 PRE-OP DIAGNOSIS: Acute appendicitis POST-OP DIAGNOSIS: same PROCEDURE: Laparoscopic appendectomy SURGEON: Emeterio Khan CHARACTER IMPERSONATOR: Mery Arenas ANESTHESIA TYPE: Local By Surgeon and General LMA/ETT Refer to Anesthesia Record ESTIMATED BLOOD LOSS: 30 PATHOLOGY: other (Appendix) COMPLICATIONS: None Patient was transported to: PACU Patient's condition: stable Indications: Ale is a 52-year-old woman who presents with a chief complaint of abdominal pain in the right lower quadrant, with nausea vomiting and diarrhea. She underwent a CAT scan of the abdomen and pelvis demonstrated acute appendicitis Findings: Acute appendicitis Procedure Description: After the induction of general anesthesia, I prepped and draped the anterior abdominal wall in the usual fashion. Next, I made an umbilical incision. I opened the fascia under direct vision. Using Vicryl stitches, I then affixed a 12 mm operating port to the umbilical fascia. I began insufflated the peritoneal cavity. Next, I inserted a 5 mm scope and examine the underlying tissue. There was no evidence of any trauma from the insertion. Next, with the assistance of the laparoscope, I placed 5 mm port in the left lower quadrant and suprapubic position. I then moved the scope into the left lower quadrant, and positioned the patient with some Trendelenburg and left side down. I started by examining the area of the right lower quadrant. There was quite a bit of inflammation. The appendix was easily identified, curling around the terminal ileum, with some greater omentum adherent from the midportion down towards the tip. The omentum was carefully dissected off. There was some fibrinous exudate along the length of the appendix and mesoappendix. The appendiceal tip curled downward, and out towards the patient's right side. This was gently dissected off of the terminal ileum, some adhesions of the mesoappendix were divided with the LigaSure. This allowed the tip of the appendix to mobilize up towards the anterior abdominal wall. Once this was complete, I used sequential fires of the LigaSure to divide the mesoappendix down to its base on the cecum at the confluence of the tenia. Once this was complete I divided the appendix from the cecum at its base with a LINA stapler. I placed the appendix into an Endo Catch bag and removed through the umbilical port site. I examined the surgical field. The staple line looked fine. There was no contamination or spillage and the surgical field was hemostatic. There was some inflammatory fluid in the appendiceal fossa. I irrigated this clean. There was also some fluid deep in the pelvis that I suctioned clean. I then removed the port sites under the vision the laparoscope and closed the umbilical fascia with 0 Vicryl stitches. Finally, irrigated the skin and approximated the dermis with subcuticular absorbable suture.
--- NOTE | 2023-05-10 21:54 | W.ANESPOSTOP ---
Postoperative Evaluation Date, Time and Location Date Performed: 05/10/23 Time Performed: 21:54 Patient Location: PACU Vital Signs Most Recent Imported Vital Signs: Most Recent Vital Signs Temp Pulse Resp BP Pulse Ox 36.9 C 56 L 20 110/72 93 05/10/23 18:46 05/10/23 18:46 05/10/23 18:46 05/10/23 18:46 05/10/23 18:46 Assessment Mental Status: Arousable with meaningful communication Airway and Respiratory Function: Patent airway with normal (patient baseline) respiratory exam Cardiovascular Function: Hemodynamically Stable Hydration Status: Adequately Hydrated Nausea & Vomiting: No Nausea or Vomiting Pain: Pain is tolerable per patient Peripheral Nerve Block: Patient did not receive a nerve block
[2023-05-10] MEDS: Enoxaparin 40 MG/0.4 ML SYR SC (22:55)
[2023-05-11] MEDS: traMADol 50 MG TAB PO (05:53)
--- NOTE | 2023-05-11 07:30 | W.PM.PROGNOT ---
Date of Service Date of service: 05/11/23 Time of Service: 07:30 Assessment and Plan Assessment and plan (1) Acute appendicitis: Status: Acute Assessment and plan: Postop day #1 status post laparoscopic appendectomy. Patient is tolerating a regular diet. Pain is significantly improved compared to yesterday. She denies any nausea, vomiting or fevers. She is passing flatus. Discharge home later this morning. Patient seen and examined at 07:30 on 05/11 Agree with above Patient is feeling well. She had a protein shake this morning without N/V or increased pain ABDO: soft, ND, appropriately TTP around the incisions dressings are dry and intact D/C to home Subjective Subjective Interval history since last seen: lAe states she is feeling significantly better this morning. She has no nausea or vomiting. She states that her pain is significantly improved compared to yesterday. Exam Const General: cooperative, healthy appearing and comfortable Orientation: alert and oriented x3 Resp Effort & Inspection: normal respiratory effort, no audible wheezes and no cough GI Inspection: normal to inspection Palpation: soft, no guarding and nontender Percussion: normal to percussion Objective Last Vital Signs Temp 36.6 C 05/10/23 22:11 Pulse 72 05/10/23 22:11 Resp 19 05/10/23 22:11 BP 93/60 L 05/10/23 22:11 Pulse Ox 95 05/10/23 22:11 Laboratory Results - last 24 hr 05/10/23 05/10/23 05/10/23 13:28 13:28 13:40 WBC 13.47 H RBC 4.35 Hgb 12.7 Hct 37.7 MCV 87 MCH 29.2 MCHC 33.7 RDW 13.0 Plt Count 248 MPV 8.7 Immature Gran % 0.3 Neutrophils % 87.8 Lymphocytes % 6.3 Monocytes % 5.3 Eosinophils % 0.1 Basophils % 0.2 Nucleated RBC % 0.0 Absolute Neutrophils 11.83 H Absolute Lymphocytes 0.85 L Absolute Monocytes 0.71 Absolute Eosinophils 0.01 Absolute Basophils 0.03 Sodium 138 Potassium 3.6 Chloride 101 Carbon Dioxide 27.9 Anion Gap 9.1 BUN 17 Creatinine 0.8 Est GFR (CKD-EPI 2020) 88.60 Glucose 105 Calcium 8.9 Total Bilirubin 0.6 AST 16 ALT 22 Alkaline Phosphatase 107 Total Protein 7.3 Albumin 4.0 Lipase 23 Urine Color Yellow Urine Clarity Clear Urine pH 8.5 H Ur Specific [place] 1.020 Urine Protein Negative Urine Ketones 80 H Urine Blood Negative Urine Nitrite Negative Urine Bilirubin Small H Urine Urobilinogen 0.2 Ur Leukocyte Esterase Negative Urine Glucose Negative Time Spent with Patient Time Spent with Patient: <25 minutes Time was spent: preparing to see the patient(eg.review tests) and counseling the patient
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
--- NOTE | 2023-05-11 10:47 | PDOC.CMDIS ---
Date of service: 05/11/23 Time of Service: 10:47 LACE Index Scoring Tool Questions: Length of Stay (in days): 1 Was the patient admitted via the E.D.?: Yes E.D. Visits: 1 Answers: Total Score: 5 Risk of Readmission: Low Risk Care Management Discharge Plan Reason for Hospitalization: Laparoscopic Appendectomy Discharge Plan: Ale is discharged home via private vehicle with family. She will follow up with outpatient providers and discharge plan of care as instructed. No new services are ordered, prior to discharge. Patient/Family Education Needs: Review discharge instructions, limitations, medications and plan to follow up with community providers. Discuss ask me three.
== END 2023-05-11 10:20 | disposition home or self-care (01) ==
LOC: ER 19:26 → DSU 20:11 → MS 22:20
PROVIDERS: Admitting Provider Surgery; Emergency Provider Emergency Medicine; PCP Family Medicine; Visit Provider Surgery
PROC: 0DTJ4ZZ Resection of Appendix, Percutaneous Endoscopic Approach (ICD-10-PCS; CPT 44970; principal; 2023-05-10 19:30)
DX: K35.80 Unspecified acute appendicitis (principal); Z80.0 Family history of malignant neoplasm of digestive organs; Z98.84 Bariatric surgery status; K44.9 Diaphragmatic hernia without obstruction or gangrene; F98.8 Other specified behavioral and emotional disorders with onset usually occurring in childhood and adolescence; G56.03 Carpal tunnel syndrome, bilateral upper limbs; M18.0 Bilateral primary osteoarthritis of first carpometacarpal joints
CPT/HCPCS: 44970; 36415; 80053; 83690; 96365; 99285; J1650; 74177; 81003; 85025; 88304; G0378; J0690; J1100; J1885; J2001; J2250; J2270; J2405; J2543; J2704; J3010; J3490

== ENCOUNTER 2023-09-25 09:43 | Day surgery (SDC) | payer OTHER, SELFPAY ==
--- NOTE | 2023-09-25 10:10 | W.PM.DSUDISC ---
Date of service: 09/25/23 Time of Service: 11:24 Discharge Plan Disposition Patient Disposition: Home Condition: Good Discharge Details Reason For Visit: [place] [facility] [place] Attending Provider: Omid Moses Primary Care Provider: Desirae Mckeon Home Meds and New Rx's Prescriptions: New hydrocodone-acetaminophen 5-325 mg tablet 1 tab PO Q6H PRN (Reason: severe pain) Qty: 6 0RF Rx Instructions: Take one tablet up to every 6 hours as needed for severe postoperative pain acetaminophen 500 mg tablet 1,000 mg PO Q8H PRN Qty: 90 0RF Rx Instructions: Take two tablets up to every 8 hours as needed for pain ibuprofen 600 mg tablet 600 mg PO TID PRN (Reason: pain) Qty: 60 0RF Continued Dorian Melts 500 2 tab.chew PO BID Rx Instructions: Calcium Citrate 500mg Magnesium 120mg Vitamin D3 1500 IU All-Natural Bariatric Vitamins cholecalciferol (vitamin D3) 2,000 UNIT tablet 2,000 unit PO DAILY Multivitamin/Iron/Folic Acid [Centrum Adults Tablet] 1 EACH tablet 1 ea PO DAILY sennosides [senna] 8.6 MG tablet 2 tab-cap PO DAILY Vit B-12 Lozenge 1,000 mcg Sublingual DAILY venlafaxine 75 mg capsule,extended release 24hr 75 mg PO QPM Qty: 90 4RF trazodone 100 mg tablet 100 mg PO DAILY Qty: 90 4RF duloxetine 60 mg capsule,delayed release(DR/EC) 60 mg PO DAILY Qty: 90 11RF methylphenidate HCl 10 mg tablet 10 mg PO BID MDD 20mg Qty: 60 0RF Discharge Instructions Additional Instructions: [place] [facility] [place] Activity: You should keep the hand/thumb elevated as much as possible for the first few days. You may use the other fingers as tolerated but avoid trying to do too much too soon. You may perform light activities with the splint in place. Dressing/Cast: Your splint should stay in place at all times. Do NOT get it wet. You may loosen the RHONDA wrap if you feel it is too tight and then rewrap more loosely. Medications: - You should take Tylenol and Ibuprofen for baseline pain control. - You have Hydrocodone for breakthrough pain. - You may apply ice over the thumb. Follow-up: 10-14 days Referrals: Omid Moses MD [ [facility] STAFF PHYSICIAN] - Equipment/Supplies: Splint Activity:: Elevate Remove Dressings/Wound Care:: Do Not Remove Shower/Bathe:: Cover Diet:: As Tolerated Discharge Orders Discharge Orders: Discharge Order (Routine); Ordered 09/25/23 Ordered By: Amelia Walton
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
[2023-09-25 10:21] VITALS: BP 102/68; PULSE 58; RESP 18; TEMP 36.5; O2SAT 96
[2023-09-25] MEDS: Acetaminophen 500 MG TAB 1000 MG PO (10:34)
[2023-09-25] MEDS: Lactated Ringers 1,000 ML 80 ML IV (10:35)
[2023-09-25] MEDS: Celecoxib 200 MG CAP 400 MG PO (10:35)
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
[2023-09-25 11:34] VITALS: BMI 26.2
[2023-09-25] MEDS: ceFAZolin 2 GM/50 ML BAG IVPB (12:28)
[2023-09-25] MEDS: Bupivacaine 0.25% Pres-Free 30 ML VIAL (13:14)
--- NOTE | 2023-09-25 13:33 | DI.RAD_ITS ---
Exam(s) XR HAND RT LIMITED EXAM: XR HAND RT LIMITED CLINICAL HISTORY: Osteoarthritis of carpometacarpal (CMC) joint of. TECHNIQUE: 2D and realtime digital imaging was performed. COMPARISON: CR XR WRIST RT COMPLETE from 02/12/2023 FINDINGS: Please see procedure note for details. Fluoro time: 3seconds RADIATION DOSE DELIVERED: peyton العلي=0.012 mGy
[2023-09-25 13:45] VITALS: BP 99/68; PULSE 48; RESP 16; TEMP 36.3; O2SAT 97
[2023-09-25] MEDS: HYDROcodone 5/Acetaminophen 325 TAB PO (14:17)
[2023-09-25 14:20] VITALS: BP 110/70; PULSE 52; RESP 16; TEMP 36.6; O2SAT 98
[2023-09-25 14:45] VITALS: BP 101/63; PULSE 63; RESP 16; TEMP 36.3; O2SAT 96
--- NOTE | 2023-09-25 14:55 | W.ANESPOSTOP ---
Postoperative Evaluation Date, Time and Location Date Performed: 09/25/23 Time Performed: 14:55 Patient Location: Day Surgery Unit Vital Signs Most Recent Imported Vital Signs: Most Recent Vital Signs Temp Pulse Resp BP Pulse Ox 36.6 C 52 L 16 110/70 98 09/25/23 14:20 09/25/23 14:20 09/25/23 14:20 09/25/23 14:20 09/25/23 14:20 Pain Score Most Recent Pain Score: Most Recent Pain Score Pain Level 10 09/25/23 14:20 Assessment Mental Status: Awake (Alert & Oriented to Patient Baseline) Airway and Respiratory Function: Patent airway with normal (patient baseline) respiratory exam Cardiovascular Function: Hemodynamically Stable Hydration Status: Adequately Hydrated Nausea & Vomiting: No Nausea or Vomiting Pain: Pain is Moderate or Severe Postoperative Pain Management: Pain being addressed with medication Peripheral Nerve Block: Patient did not receive a nerve block
--- NOTE | 2023-09-25 15:24 | W.PM.OP ---
Date of service: 09/25/23 Time of Service: 12:30 Operative Note Operative Note DATE OF PROCEDURE: 09/25/23 PRE-OP DIAGNOSIS: Right Thumb CMC Arthritis POST-OP DIAGNOSIS: same PROCEDURE: Right trapezial resection arthroplasty with suture suspensionplasty SURGEON: Omid Moses STUDENT TRUCK DRIVER: Amelia Walton ANESTHESIA TYPE: General LMA/ETT Refer to Anesthesia Record ESTIMATED BLOOD LOSS: 5 PATHOLOGY: none sent TOURNIQUET TIME: 40 COMPLICATIONS: None Patient was transported to: PACU Patient's condition: stable Indications: Ale is a 53 year old female who has had symptoms of thumb CMC arthritis with pain and decreased mobility. Nonoperative treatment options had been trialed. Given their failure, I offered operative intervention. I reviewed the technical details. I reviewed the risk of the procedure to include bleeding, infection, pain, stiffness, instability, subsidence, damage to neighboring arteries, damage to the superficial radial nerve, and weakness. Despite these risks, the patient elected to proceed. Findings: There is notable arthrosis between the trapezium and the first metacarpal. There are large osteophytes around the trapezium. Procedure Description: Ale was greeted in the preoperative holding area. Name and surgical site were confirmed. The history and physical was completed. The consent was reviewed the patient and signed. She was taken back to the operating room. The patient was placed and monitored anesthesia care. The right arm was then prepped with ChloraPrep and draped in a standard fashion after a nonsterile tourniquet was placed high up onto the arm. Prophylactic antibiotics in the form of cefazolin were administered. A timeout was performed for safe surgery. The surgical site was drawn on the skin overlying the dorsal radial border of the wrist. The planned surgical field was anesthetized with 0.25% bupivacaine with epinephrine. The limb was exsanguinated and the tourniquet was inflated where it stayed for 45 minutes. A 3 cm incision was made longitudinally over the radial wrist from the level of the radial styloid to just past the base of the first metacarpal. The skin was incised only. The deep tissue and subcutaneous fat was dissected with a tenotomy scissors trying to protect branches of the superficial radial nerve. Any branches that were identified were retracted out of the way. The first compartment extensor tendons were then identified. The first extensor compartment was released. The interval between EPL and EPB was identified. The base of the first metacarpal was palpated. A needle was placed into the joint between the first metacarpal and the trapezium. A single x-ray was used to confirm appropriate positioning. The capsule of the trapezium was then incised. The radial border of the bone was identified. Soft tissues around trapezium were dissected bluntly to allow relaxation of vital arterial structures traversing the trapezium. Using a [place] blade the capsule was elevated off the trapezium in a subperiosteal fashion. Once it appeared to have all the capsular attachments released, the trapezium was then removed using a rongeur. The wound was inspected to make sure all portions of the trapezium were removed. X-ray was used to confirm appropriate removal of all bony fragments. The wound was then thoroughly irrigated. Using a 2-0 FiberWire then performed a suture suspensionplasty. This was done by incorporating capsule and attachments of the APL at the base of the first metacarpal and creating a sling connected to the deep flexor carpi radialis tendon seen traversing deep within the wound towards the second metacarpal. This was done twice to create a crossing network of 2-0 suture. This was then tied overlying the base of the first metacarpal making sure not to over tighten and hourglass the tendons. This provided support to the first metacarpal to prevent any excessive subsidence. The tourniquet was then released. There is no significant bleeding. The capsule of the trapezium was then reapproximated with a 3-0 Vicryl. The skin was closed with subcuticular 4-0 Monocryl, reinforced with skin glue. The hand was dressed with 4 x 4's, Kerlex and RHONDA to create a soft, thumb spica splint. All counts were correct. Patient was transferred back to PACU in a stable condition.
== END 2023-09-25 15:15 | disposition home or self-care (01) ==
PROVIDERS: PCP Family Medicine; Visit Provider Student in an Organized Health Care Education/Training Program
PROC: (CPT 25447; principal; 2023-09-25 13:45)
DX: M18.11 Unilateral primary osteoarthritis of first carpometacarpal joint, right hand (principal); F32.A Depression, unspecified; G47.9 Sleep disorder, unspecified; Z98.84 Bariatric surgery status
CPT/HCPCS: 25447; 76000; 73120; J0690; J1100; J2250; J2405; J2704; J3010

== ENCOUNTER 2023-11-07 07:03 | Day surgery (SDC) | payer OTHER, SELFPAY ==
[2023-11-07 07:18] VITALS: BP 101/66; PULSE 54; RESP 16; TEMP 36.4; O2SAT 99
--- NOTE | 2023-11-07 07:30 | W.PM.DSUDISC ---
Date of service: 11/07/23 Time of Service: 07:32 Discharge Plan Disposition Patient Disposition: Home Condition: Good Discharge Details Reason For Visit: Left CMC DJD Attending Provider: Omid Moses Primary Care Provider: Desirae Mckeon Home Meds and New Rx's Prescriptions: New hydrocodone-acetaminophen 5-325 mg tablet 1 tab PO Q6H PRN (Reason: severe pain) Qty: 6 0RF Rx Instructions: Take one tablet up to every 6 hours as needed for severe postoperative pain acetaminophen 500 mg tablet 1,000 mg PO Q8H PRN Qty: 90 0RF Rx Instructions: Take two tablets up to every 8 hours as needed for pain ibuprofen 600 mg tablet 600 mg PO TID PRN (Reason: pain) Qty: 60 0RF Continued Dorian Melts 500 2 tab.chew PO BID Rx Instructions: Calcium Citrate 500mg Magnesium 120mg Vitamin D3 1500 IU All-Natural Bariatric Vitamins cholecalciferol (vitamin D3) 2,000 UNIT tablet 2,000 unit PO DAILY Multivitamin/Iron/Folic Acid [Centrum Adults Tablet] 1 EACH tablet 1 ea PO DAILY sennosides [senna] 8.6 MG tablet 2 tab-cap PO DAILY Vit B-12 Lozenge 1,000 mcg Sublingual DAILY venlafaxine 75 mg capsule,extended release 24hr 75 mg PO QPM Qty: 90 4RF trazodone 100 mg tablet 100 mg PO DAILY Qty: 90 4RF duloxetine 60 mg capsule,delayed release(DR/EC) 60 mg PO DAILY Qty: 90 11RF methylphenidate HCl 10 mg tablet 10 mg PO BID MDD 20mg Qty: 60 0RF Discontinued acetaminophen 500 mg tablet 1,000 mg PO Q8H PRN Qty: 90 0RF Rx Instructions: Take two tablets up to every 8 hours as needed for pain ibuprofen 600 mg tablet 600 mg PO TID PRN (Reason: pain) Qty: 60 0RF Discharge Instructions Additional Instructions: Thumb CMC Discharge Instructions Activity: You should keep the hand/thumb elevated as much as possible for the first few days. You may use the other fingers as tolerated but avoid trying to do too much too soon. You may perform light activities with the splint in place. Dressing/Cast: Your splint should stay in place at all times. Do NOT get it wet. You may loosen the RHONDA wrap if you feel it is too tight and then rewrap more loosely. Medications: - You should take Tylenol and Ibuprofen for baseline pain control. - You have Hydrocodone for breakthrough pain. - You may apply ice over the thumb. Follow-up: 10-14 days Referrals: Omid Moses MD [ [facility] ST[facility]FF [facility]YSICIAN] - Equipment/Supplies: Splint Activity:: Elevate Remove Dressings/Wound Care:: Do Not Remove Shower/Bathe:: Cover Diet:: As Tolerated Discharge Orders Discharge Orders: Discharge Order (Routine); Ordered 11/07/23 Ordered By: Amelia Walton
[2023-11-07] MEDS: Acetaminophen 500 MG TAB 1000 MG PO (07:46)
[2023-11-07] MEDS: Lactated Ringers 1,000 ML 80 ML IV (07:47)
[2023-11-07] MEDS: Celecoxib 200 MG CAP 400 MG PO (07:47)
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
[2023-11-07 08:28] VITALS: BMI 26.5
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
[2023-11-07] MEDS: ceFAZolin 2 GM/50 ML BAG IVPB (09:05)
[2023-11-07] MEDS: Bupivacaine 0.25% Pres-Free 30 ML VIAL (09:47)
--- NOTE | 2023-11-07 10:08 | DI.RAD_ITS ---
Exam(s) XR HAND LT LIMITED EXAM: XR HAND LT LIMITED CLINICAL HISTORY: Osteoarthritis of carpometacarpal (CMC) joint L. TECHNIQUE: 2D and realtime digital imaging was performed. COMPARISON: CR XR WRIST LT COMPLETE from 02/12/2023 FINDINGS: Please see procedure note for details. Fluoro time: 3seconds RADIATION DOSE DELIVERED: [place] العلي=0.004 mGy
--- NOTE | 2023-11-07 10:14 | ROE_ITS ---
Date of service: 11/07/23 Time of Service: 09:30 Operative Note Operative Note DATE OF PROCEDURE: 11/07/23 PRE-OP DIAGNOSIS: Left Thumb CMC Arthritis POST-OP DIAGNOSIS: same PROCEDURE: Left trapezial resection arthroplasty with suture suspensionplasty SURGEON: Omid Moses MAINTENANCE GROUNDSKEEPER: Amelia Walton ANESTHESIA TYPE: General LMA/ETT Refer to Anesthesia Record ESTIMATED BLOOD LOSS: 0 PATHOLOGY: none sent TOURNIQUET TIME: 40 COMPLICATIONS: None Patient was transported to: PACU Patient's condition: stable Indications: Ale is a 53 year old female who has had symptoms of thumb CMC arthritis with pain and decreased mobility. Nonoperative treatment options had been trialed. Given their failure, I offered operative intervention. She had successful cmc arthroplasty on the right side 6 weeks ago. Once again, I reviewed the technical details. I reviewed the risk of the procedure to include bleeding, infection, pain, stiffness, instability, subsidence, damage to neighboring arteries, damage to the superficial radial nerve, and weakness. Despite these risks, the patient elected to proceed. Findings: There is notable arthrosis between the trapezium and the first metacarpal. There are large osteophytes around the entirety of the trapezium. Procedure Description: Ale was greeted in the preoperative holding area. Name and surgical site were confirmed. The history and physical was completed. The consent was reviewed the patient and signed. She was taken back to the operating room. The patient was placed and monitored anesthesia care. The left was then prepped with ChloraPrep and draped in a standard fashion after a nonsterile tourniquet was placed high up onto the arm. Prophylactic antibiotics in the form of cefazolin were administered. A timeout was performed for safe surgery. The surgical site was drawn on the skin overlying the dorsal radial border of the wrist. The planned surgical field was anesthetized with 0.25% bupivacaine with epinephrine. The limb was exsanguinated and the tourniquet was inflated where it stayed for 45 minutes. A 3 cm incision was made longitudinally over the radial wrist from the level of the radial styloid to just past the base of the first metacarpal. The skin was incised only. The deep tissue and subcutaneous fat was dissected with a tenotomy scissors trying to protect branches of the superficial radial nerve. Any branches that were identified were retracted out of the way. The first compartment extensor tendons were then identified. The interval between EPL and EPB was identified. The base of the first metacarp al was palpated. A needle was placed into the joint between the first metacarpal and the trapezium. A single x-ray was used to confirm the identification of the CMC joint. The capsule of the trapezium was then incised. The radial border of the bone was identified. Soft tissues around trapezium were dissected bluntly to allow relaxation of vital arterial structures traversing the trapezium. Using a [place] blade the capsule was elevated off the trapezium in a subperiosteal fashion. Once it appeared to have all the capsular attachments released, the trapezium was then removed using a rongeur. The wound was inspected to make sure all portions of the trapezium were removed. The wound was then thoroughly irrigated. Using a 2-0 FiberWire then performed a suture suspensionplasty. This was done by incorporating capsule and attachments of the APL at the base of the first metacarpal and creating a sling connected to the deep flexor carpi radialis tendon seen traversing deep within the wound towards the second metacarpal. This was done twice to create a crossing network of 2-0 suture. This was then tied overlying the base of the first metacarpal making sure not to over tighten and hourglass the tendons. This provided support to the first metacarpal to prevent any excessive subsidence. The tourniquet was then released. There is no significant bleeding. The capsule of the trapezium was then reapproximated with a 3-0 Vicryl. The skin was closed 3- 0 Vicryl followed by subcuticular 4-0 Monocryl, reinforced with skin glue. The hand was dressed with 4 x 4's, Kerlex and RHONDA to create a soft, thumb spica splint. All counts were correct. Patient was transferred back to PACU in a stable condition.
[2023-11-07 10:18] VITALS: BP 115/73; PULSE 66; RESP 16; TEMP 36.6; O2SAT 95
[2023-11-07 10:48] VITALS: BP 106/69; PULSE 66; RESP 16; TEMP 37; O2SAT 97
--- NOTE | 2023-11-07 10:53 | W.ANESPOSTOP ---
Postoperative Evaluation Date, Time and Location Date Performed: 11/07/23 Time Performed: 10:53 Patient Location: Day Surgery Unit Vital Signs Most Recent Imported Vital Signs: Most Recent Vital Signs Temp Pulse Resp BP Pulse Ox 37.0 C 66 16 106/69 97 11/07/23 10:48 11/07/23 10:48 11/07/23 10:48 11/07/23 10:48 11/07/23 10:48 Pain Score Most Recent Pain Score: Most Recent Pain Score Pain Level 0 11/07/23 10:48 Assessment Mental Status: Awake (Alert & Oriented to Patient Baseline) Airway and Respiratory Function: Patent airway with normal (patient baseline) respiratory exam Cardiovascular Function: Hemodynamically Stable Hydration Status: Adequately Hydrated Nausea & Vomiting: No Nausea or Vomiting Pain: Pt. Denies Any Pain Peripheral Nerve Block: Patient did not receive a nerve block
== END 2023-11-07 11:33 | disposition home or self-care (01) ==
PROVIDERS: PCP Family Medicine; Visit Provider Student in an Organized Health Care Education/Training Program
PROC: (CPT 25447; principal; 2023-11-07 09:45)
DX: M18.12 Unilateral primary osteoarthritis of first carpometacarpal joint, left hand (principal)
CPT/HCPCS: 25447; 76000; 73120; J0690; J2001; J2250; J2405; J2704; J3010

== ENCOUNTER 2024-07-03 02:14 | Outpatient (CLI) | payer OTHER, SELFPAY ==
--- NOTE | 2024-07-03 07:43 | DI.MAMMO_ITS ---
Exam(s) MAMMO SCREENING EXAM: MAMMO SCREENING CLINICAL HISTORY: screening,z12.39 TECHNIQUE: Mammograms were interpreted according to the usual protocol including computer analysis w UClass CAD system, tomosynthesis and C-view imaging. COMPARISON: 2014 through 2022 FINDINGS: The breasts are composed of scattered fibroglandular densities, Breast Density category B. No suspicious masses or suspicious microcalcifications are seen. No skin thickening or abnormal axillary lymph nodes are seen. There has been no significant change from prior exams. IMPRESSION: BI-RADS Category 1, Negative mammogram Yearly screening mammography is recommended. Breast Density - Category B, scattered fibroglandular densities. A negative radiographic report should not delay biopsy if a dominant or clinically suspicious mass is present. Up to ten percent of cancers are not identified on mammography. A negative report may reinforce clinical impression. Adenosis and dense breasts may obscure an underlying neoplasm. False positive reports average 6 to 10%. Patient will receive a letter notifying them of these results.
== END 2024-07-03 02:34 ==
PROVIDERS: PCP Family Medicine; Visit Provider Family Medicine
DX: Z12.31 Encounter for screening mammogram for malignant neoplasm of breast (principal)
CPT/HCPCS: 77063; 77067

== ENCOUNTER 2024-09-08 15:53 | Outpatient (REF) | payer OTHER, SELFPAY ==
--- NOTE | 2024-09-08 11:30 | PAPFT_PTH ---
PATIENT: Ale Velarde LOC: [facility] U#:[id number] AGE/SX: 53/F ROOM: RE09/08/[address]: Desirae Mckeon MD, DC : 1970 BED: DIS: 09/08/2024 SPEC #: [id number] RECD: 09/09/24 13:13 STATUS: ELIUD REQ #: [id number] ELIN: 09/08/24 11:[address]: Desirae Mckeon DEPT: [facility] Cytology RECD BY: Marielena Fine Tissues: 1 - CX/ENDOCX FOR PAP SMEARS Procedures: PAP THIN PREP/UVM Screening HPV DNA PROBE Comments: [id number] (HPV 16 & 18/45)
== END 2024-09-08 15:54 | disposition home or self-care (01) ==
LOC: LBN 15:53
PROVIDERS: PCP Family Medicine; Visit Provider Family Medicine
DX: Z11.51 Encounter for screening for human papillomavirus (HPV) (principal); Z01.419 Encounter for gynecological examination (general) (routine) without abnormal findings
CPT/HCPCS: 88142; 87624

== ENCOUNTER 2024-11-24 07:49 | Day surgery (SDC) | payer OTHER, SELFPAY ==
[2024-11-24 08:07] VITALS: BP 106/64; PULSE 63; RESP 16; TEMP 36.3; O2SAT 96
[2024-11-24] MEDS: Lactated Ringers 1,000 ML 80 ML IV (08:18)
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
[2024-11-24 08:57] VITALS: BMI 26.6
--- NOTE | 2024-11-24 09:30 | BOWEL_PTH ---
PATIENT: Ale Velarde LOC: [facility] U#:[id number] AGE/SX: 54/F ROOM: RE11/24/[address]: Elver Gamboa : 1970 BED: DIS: 11/24/2024 SPEC #: [id number] RECD: 11/24/24 13:01 STATUS: ELIUD [facility] #: [id number] ELIN: 11/24/24 09:[address]: Elver Gamboa DEPT: Surgical Specimen RECD BY: Marielena Fine ENTERED: 11/24/24 13:01 SP TYPE: Bowel OTHR DR: Desirae Mckeon MD, DC Tissues: 1 - BIOPSY BOWEL Procedures: GROSS AND MICRO LEVEL 4 Comments: [id number]
[2024-11-24 09:39] VITALS: BP 106/62; PULSE 50; RESP 14; TEMP 36.3; O2SAT 98
--- NOTE | 2024-11-24 09:40 | W.COLOREPORT ---
Date of service: 11/24/24 Time of Service: 09:40 Colonoscopy Report Procedure Description: PROCEDURES PERFORMED: 1. Colonoscopy with cold forceps polypectomy PREOPERATIVE DIAGNOSIS: Surveillance colonoscopy, family history POSTOPERATIVE DIAGNOSIS: Colon polyp, grade 2 internal hemorrhoids SURGEON: Felipe Gamboa MD INDICATION for procedure: The patient is a 54-year-old woman with a family history of a grandmother with colon cancer in both her parents have had colon polyps. She herself has never had polyps. No symptoms. FINDINGS: A small (2-3 mm sessile) polyp was found and removed with cold forceps technique in the sigmoid colon. No diverticular disease. Grade 1 internal hemorrhoids. SURVEILLANCE interval/FOLLOW-UP: 3 - 5 years. If sessile serrated or villous histology then 3 years. But because of family history I recommend no longer than 5 years. SPECIMENS: yes EBL: Minimal COMPLICATIONS: None QUALITY of prep: Excellent Procedure in detail: The patient gave written consent and was in agreement with the indications, the potential risks as well as the benefits of the procedure. They were taken to the endoscopy suite and laid in the left lateral decubitus position. A timeout was performed and anesthesia was administered which was tolerated well. I started the procedure. Digital rectal and visual examination was performed and grossly within normal limits. A well-lubricated flexible colonoscope was then introduced and passed without any notable difficulty all the way to the cecum identified by the ileocecal valve and the appendiceal orifice. The scope was then slowly withdrawn with the above-noted findings. The patient tolerated the procedure well and was taken to the PACU in hemodynamically stable condition.
--- NOTE | 2024-11-24 09:42 | W.PM.DSUDISC ---
Date of service: 11/24/24 Discharge Plan Disposition Patient Disposition: Home Condition: Good Discharge Details Attending Provider: Elver Gamboa Primary Care Provider: Desirae Mckeon Home Meds and New Rx's Prescriptions: No Action Dorian Melts 500 2 tab.chew PO BID Rx Instructions: Calcium Citrate 500mg Magnesium 120mg Vitamin D3 1500 IU All-Natural Bariatric Vitamins cholecalciferol (vitamin D3) 2,000 UNIT tablet 2,000 unit PO DAILY Multivitamin/Iron/Folic Acid [Centrum Adults Tablet] 1 EACH tablet 1 ea PO DAILY sennosides [senna] 8.6 MG tablet 2 tab-cap PO DAILY Vit B-12 Lozenge 1,000 mcg Sublingual DAILY venlafaxine 75 mg capsule,extended release 24hr 75 mg PO QPM Qty: 90 4RF trazodone 100 mg tablet 100 mg PO DAILY Qty: 90 4RF duloxetine 60 mg capsule,delayed release(DR/EC) 60 mg PO DAILY Qty: 90 11RF Discharge Instructions Additional Instructions: A small polyp was found and removed today. It is nothing to worry about. Because your family history you need to repeat a colonoscopy in 3-5 years. We Will call you after the pathology gets resulted on the polyp to decide. Activity:: Activity as Tolerated Diet:: As Tolerated
[2024-11-24 10:05] VITALS: BP 103/58; PULSE 54; RESP 16; TEMP 36.3; O2SAT 99
--- NOTE | 2024-11-24 10:26 | W.ANESPOSTOP ---
Postoperative Evaluation Date, Time and Location Date Performed: 11/24/24 Time Performed: 09:42 Patient Location: Day Surgery Unit Vital Signs Most Recent Imported Vital Signs: Most Recent Vital Signs Temp Pulse Resp BP Pulse Ox 36.3 C L 54 L 16 103/58 L 99 11/24/24 10:05 11/24/24 10:05 11/24/24 10:05 11/24/24 10:05 11/24/24 10:05 Pain Score Most Recent Pain Score: Most Recent Pain Score Pain Level 0 11/24/24 10:05 Assessment Mental Status: Awake (Alert & Oriented to Patient Baseline) Airway and Respiratory Function: Patent airway with normal (patient baseline) respiratory exam Cardiovascular Function: Hemodynamically Stable Hydration Status: Adequately Hydrated Nausea & Vomiting: No Nausea or Vomiting Pain: Pt. Denies Any Pain Peripheral Nerve Block: Patient did not receive a nerve block
== END 2024-11-24 10:23 | disposition home or self-care (01) ==
PROVIDERS: PCP Family Medicine; Visit Provider Student in an Organized Health Care Education/Training Program
PROC: 0DJD8ZZ Inspection of Lower Intestinal Tract, Via Natural or Artificial Opening Endoscopic (ICD-10-PCS; CPT 45378; principal; 2024-11-24 09:00)
DX: Z12.11 Encounter for screening for malignant neoplasm of colon (principal); Z80.0 Family history of malignant neoplasm of digestive organs; K63.5 Polyp of colon; K64.1 Second degree hemorrhoids
CPT/HCPCS: 45380; 00123; 88305; J2405; J2704